=== PATIENT | female | born 1980 | race Hispanic/Latino ===

== ENCOUNTER 2017-07-18 08:15 | Emergency (ER) | payer SELFPAY ==
[2017-07-18] MEDS ORDERED: Fluorescein Opthalmic Strip ONE (08:28)
== END 2017-07-18 08:40 | disposition home or self-care (01) ==
LOC: BURERS 08:15
DX: S05.10XA Contusion of eyeball and orbital tissues, unspecified eye, initial encounter (principal); Y04.8XXA Assault by other bodily force, initial encounter
CPT/HCPCS: 99283